=== PATIENT | male | born 1955 | race Caucasian/White ===

== ENCOUNTER 2024-03-12 04:43 | Day surgery (SDC) | payer OTHER ==
[2024-03-09 09:34] VITALS: BMI 26.0
[2024-03-12 09:01] VITALS: TEMP 98
[2024-03-12 09:04] VITALS: BP 143/75; PULSE 61; RESP 13
== END 2024-03-12 08:58 | disposition home or self-care (01) ==
LOC: JASU-ENDO 04:43
PROVIDERS: ATTEND Internal Medicine Gastroenterology
PROC: 0D5P8ZZ Destruction of Rectum, Via Natural or Artificial Opening Endoscopic (ICD-10-PCS; principal; 2024-03-12 08:30)
DX: K62.5 Hemorrhage of anus and rectum (principal); Z92.3 Personal history of irradiation

== ENCOUNTER 2024-09-24 07:34 | Day surgery (SDC) | payer OTHER ==
[2024-09-24 09:22] VITALS: RESP 18; BMI 26.6
[2024-09-24 10:16] VITALS: TEMP 98.4
[2024-09-24 10:40] VITALS: BP 132/1; PULSE 57
== END 2024-09-24 10:49 | disposition home or self-care (01) ==
LOC: JASU-ENDO 07:34
PROVIDERS: ATTEND Internal Medicine Gastroenterology
PROC: 0W3P8ZZ Control Bleeding in Gastrointestinal Tract, Via Natural or Artificial Opening Endoscopic (ICD-10-PCS; principal; 2024-09-24 09:00)
DX: K62.7 Radiation proctitis (principal); Y84.2 Radiological procedure and radiotherapy as the cause of abnormal reaction of the patient, or of later complication, without mention of misadventure at the time of the procedure; Z92.3 Personal history of irradiation